=== PATIENT | female | born 1955 | race Caucasian/White ===

== ENCOUNTER → 2018-03-18 | Outpatient (CLI) | payer BC ==
--- NOTE | 2018-03-18 14:51 | DIAGNOSTIC IMAGING REPORT ---
CT OF THE SINUSES WITHOUT CONTRAST FUSION PROTOCOL CLINICAL HISTORY: Chronic sinusitis. History of septicemia related to chronic sinusitis in 2014. Recurrent acute sinusitis. COMPARISON STUDY: No previous studies for comparison. TECHNIQUE: Axial images of the sinuses were obtained without IV contrast according to Fusion protocol. Coronal reformats were viewed. FINDINGS: Visualized portions of the intracranial contents are unremarkable on this unenhanced exam. Orbits are unremarkable. Mastoid air cells are clear. Ossicles are intact. There is no fluid within the middle ears. Major drainage pathways of the sinuses are clear. There is minimal mucosal thickening of the right maxillary sinus. Otherwise, sinuses are clear. Slight leftward deviation of the nasal septum is noted without spur formation. There is no mass or bony destruction within the sinuses. IMPRESSION: Essentially clear sinuses with patent major drainage pathways. No evidence for acute sinusitis. Electronically signed by: Philip Farrell M.D. 03/18/2018 2:49 PM Dictated Date/Time: 03/18/2018 2:44 PM
== END | disposition home or self-care (01) ==
LOC: C.CTS 14:20
DX: J32.9 Chronic sinusitis, unspecified (principal)

== ENCOUNTER → 2018-04-02 | Outpatient (CLI) | payer BC ==
--- NOTE | 2018-04-03 13:38 | MAMMOGRAPHY REPORT ---
BILATERAL DIGITAL SCREENING MAMMOGRAM TOMOSYNTHESIS WITH CAD: 04/02/2018 CLINICAL HISTORY: Routine screening. Patient has no complaints. TECHNIQUE: The study was acquired using full field digital technology and interpreted from soft copy. Breast tomosynthesis in addition to standard 2D mammography was performed. Current study was also ev aluated with a Computer Aided Detection (CAD) system. COMPARISON: No prior exams were available for comparison. BREAST COMPOSITION: There are scattered areas of fibroglandular density in both breasts. FINDINGS: There are minimal vascular calcifications in the breasts. No suspicious mass, architectural distorti on or cluster of microcalcifications is seen. IMPRESSION: ACR BI-RADS CATEGORY 1: NEGATIVE There is no mammographic evidence of malignancy. Prior outside mammograms are currently being reques mary and if obtained they will be reviewed, compared to the current exam to assess for any more subtle changes, and an addendum will be made to this report. Otherwise, a 1 year screening mammogram is re commended. The patient will receive written notification of the results. Some breast cancers are not detected with mammography. A negative mammographic report should not michi y biopsy if a clinically suggestive mass is present. Nicol Smart M.D. ay/:04/02/2018 19:26:42 Brushing Machine Operator: RT Radha(Jonathan)(Jamel)([place]), [facility] letter sent: Normal 1/2 BI-RADS Code: ACR BI-RADS Category 1: Negative
== END | disposition home or self-care (01) ==
LOC: C.MAMM 12:20
PROVIDERS: ATTEND Internal Medicine
DX: Z12.31 Encounter for screening mammogram for malignant neoplasm of breast (principal)